=== PATIENT | female | born 1970 | race Caucasian/White ===

== ENCOUNTER 2017-03-28 19:26 | Emergency (ER) | payer MEDICAID, OTHER ==
[~2017-03-28] VITALS: Ht 160 cm; Wt 108.9 kg
[~2017-03-28 19:26] MED LIST: BENADRYL; CARI350T27 PO
[2017-03-28 19:34] VITALS: BP_SYST 163
--- NOTE | 2017-03-28 19:39 | NUR ---
Patient to ER bed 2 to gown for evaluation. Side rails up. Report given to Enrico THEODORE.
--- NOTE | 2017-03-28 19:50 | NUR ---
Patient with c/o upper back pain/spasm x 3 weeks, patient denies any known trauma or injury. Patient reports that she usually gets the spasms every year, but they go away on it's own. Patient able to ambulate to room with slow, steady gait. On the way to bed 2, patient went to the bathroom and provided a urine sample which was obtained and sent to lab. Patient denies any numbness or tingling, or any incontinence. Awaiting evaluation by ER MD-will continue to observe and assess.
--- NOTE | 2017-03-28 20:05 | NUR ---
Dr Melgar at bedside to evaluate patient.
[2017-03-28] MEDS ORDERED: CYCLOBENZAPRINE HCL 10 MG TABLET (FLEXERIL) PO ONE (20:15)
[2017-03-28] MEDS ORDERED: KETOROLAC TROMETHAMINE 30 MG VIAL IM ONE (20:15)
--- NOTE | 2017-03-28 20:30 | NUR ---
Prior to medicating patient-confirmed that patient had a ride home.
[2017-03-28 21:12] VITALS: BP_SYST 142
--- NOTE | 2017-03-28 21:12 | NUR ---
Patient given written and verbal discharge instructions and verbalizes understanding. ER MD Talia Oden discussed with patient the results and treatment provided. Patient in stable condition. ID arm band removed. Rx of flexeril & naproxen given. Patient educated on pain management and to follow up with PMD. Pain Scale 0/10. Opportunity for questions provided and answered.
== END 2017-03-28 21:12 | disposition home or self-care (01) ==
LOC: SED 19:26
DX: M62.830 Muscle spasm of back (principal); Z88.6 Allergy status to analgesic agent; Z91.018 Allergy to other foods; Z90.89 Acquired absence of other organs
CPT/HCPCS: 81025; 96372; 99283; J1885

== ENCOUNTER 2018-03-20 02:11 | Emergency (ER) | payer OTHER ==
[~2018-03-20] VITALS: Ht 160 cm; Wt 97.1 kg
[2018-03-20 02:30] VITALS: BP_SYST 162
[2018-03-20 03:08] LABS: BILIRUBIN,URINE NEGATIVE (NEGATIVE); BLOOD, URINE 3+ (NEGATIVE); CLARITY/URINE SL HAZY (CLEAR); COLOR,URINE YELLOW (YELLOW); GLUCOSE,URINE NEGATIVE (NEGATIVE); KETONES,URINE TRACE (NEGATIVE); LEUKOCYTE ESTERASE ,URINE 2+ (NEGATIVE); NITRITE, URINE POSITIVE (NEGATIVE); PROTEIN URINE 1+ (NEGATIVE); UROBILINOGEN,URINE 0.2 (0.2-1.0)
[2018-03-20 03:28] LABS: BACTERIA,URINE MANY /HPF (None Seen); MUCUS,URINE 1+ /LPF (None Seen); RBC,URINE 20-50 /HPF (0-3); WBC,URINE 20-50 /HPF (0-3)
[2018-03-20] MEDS ORDERED: IBUPROFEN 800 MG TABLET PO ONE (03:45)
[2018-03-20] MEDS ORDERED: cefTRIAXone 1 GM in LIDOCAINE 1%, 20 ML MDV 2.1 ML IM ONE (04:00)
[2018-03-20 04:31] VITALS: BP_SYST 147
== END 2018-03-20 04:31 | disposition home or self-care (01) ==
LOC: SED 02:11
DX: N39.0 Urinary tract infection, site not specified (principal); R10.2 Pelvic and perineal pain; I10 Essential (primary) hypertension; Z90.49 Acquired absence of other specified parts of digestive tract; Z98.890 Other specified postprocedural states; Z88.6 Allergy status to analgesic agent; Z91.018 Allergy to other foods
CPT/HCPCS: 81000; 87086; 87186; 96372; 99284; J0696; J2001

== ENCOUNTER 2019-05-07 04:41 | Emergency (ER) | payer OTHER ==
[~2019-05-07] VITALS: Ht 162.6 cm; Wt 113.4 kg
[2019-05-07 04:55] VITALS: BP_SYST 145
--- NOTE | 2019-05-07 04:55 | NUR ---
Patient to ER bed 8 to gown for evaluation. Side rails up. Report given to VIDA THEODORE(REGISTRY).
--- NOTE | 2019-05-07 05:17 | NUR ---
ER at bedside examining patient.
--- NOTE | 2019-05-07 05:25 | NUR ---
THROAT SWAB DONE AND SENT TO LAB.
--- NOTE | 2019-05-07 06:41 | NUR ---
Patient given written and verbal discharge instructions and verbalizes understanding. ER MD discussed with patient the results and treatment provided. Patient in stable condition. ID arm band removed. Rx of Tylenol w/ codeine given. Patient educated on pain management and to follow up with PMD. Pain Scale 5/10. Opportunity for questions provided and answered. Medication side effect fact sheet provided.
[2019-05-07 06:43] VITALS: BP_SYST 139
== END 2019-05-07 06:41 | disposition home or self-care (01) ==
LOC: SED 04:41
DX: J02.9 Acute pharyngitis, unspecified (principal); R13.10 Dysphagia, unspecified; K13.70 Unspecified lesions of oral mucosa; E03.9 Hypothyroidism, unspecified; Z88.6 Allergy status to analgesic agent; Z90.49 Acquired absence of other specified parts of digestive tract; Z98.890 Other specified postprocedural states
CPT/HCPCS: 36415; 86403; 87081; 99283

== ENCOUNTER 2020-06-16 18:21 | Inpatient (IN) | payer OTHER, SELFPAY ==
[~2020-06-16] VITALS: Ht 162.6 cm; Wt 118.8 kg
[2020-06-16] MEDS: KCL 20 mEq in D5NS 1000 mL 1,000 ML IV SCH (00:17)
[2020-06-16 18:30] VITALS: BP_SYST 184
[2020-06-16 20:08] LABS: BILIRUBIN,URINE NEGATIVE (NEGATIVE); BLOOD, URINE 2+ (NEGATIVE); CLARITY/URINE CLEAR (CLEAR); COLOR,URINE YELLOW (YELLOW); GLUCOSE,URINE NEGATIVE (NEGATIVE); KETONES,URINE 1+ (NEGATIVE); LEUKOCYTE ESTERASE ,URINE NEGATIVE (NEGATIVE); NITRITE, URINE NEGATIVE (NEGATIVE); PH,URINE 5.5 (5.0-8.0); PROTEIN URINE 1+ (NEGATIVE); UROBILINOGEN,URINE 0.2 (0.2-1.0)
[2020-06-16] MEDS ORDERED: NACL 0.9% 1,000 ML IV ONE ×3 (20:15→21:45)
[2020-06-16] MEDS ORDERED: KETOROLAC TROMETHAMINE 30 MG VIAL IVP ONE (20:15)
[2020-06-16] MEDS ORDERED: ONDANSETRON HCL 4 MG/2 ML VIAL IVP ONE (20:15)
[2020-06-16] MEDS ORDERED: MORPHINE 4 MG/ML INJ. SYRINGE IVP ONE (20:15)
[2020-06-16 20:46] LABS: BASOPHILS # (AUTO) 0.1 K/uL (0.0-0.2); BASOPHILS % (AUTO) 0.9 % (0.0-2.0); EOSINOPHILS # (AUTO) 0.1 K/uL (0.0-0.4); EOSINOPHILS % (AUTO) 0.5 % (0.0-4.0); HEMATOCRIT 39.2 % (36-48); HEMOGLOBIN 12.6 g/dL (12.0-16.0); LYMPHOCYTES # (AUTO) 1.8 K/uL (1.0-5.5); LYMPHOCYTES % (AUTO) 14.9 % (20.5-51.5); MEAN CORPUSCULAR HEMOGLOBIN 26 pg (27-31); MEAN CORPUSCULAR HGB CONC 32 % (32-36); MEAN CORPUSCULAR VOLUME 82 fL (79.0-98.0); MONOCYTES # (AUTO) 0.6 K/uL (0.0-1.0); NEUTROPHILS # (AUTO) 9.4 K/uL (1.8-7.7); NEUTROPHILS % (AUTO) 78.7 % (40.0-70.0); PLATELET COUNT (AUTO) 383 K/uL (130-430); RED BLOOD CELL COUNT(AUTO) 4.77 MIL/uL (4.2-6.2); RED CELL DISTRIBUTION WIDTH 17.8 % (9.0-15.0); WHITE BLOOD COUNT (AUTO) 11.9 K/uL (4.8-10.8)
[2020-06-16] MEDS ORDERED: cefTRIAXone 1 GM IVPB PREMIX 50 ML IV ONE (21:30)
[2020-06-16 21:40] LABS: CREATININE 1.23 mg/dL (0.55-1.30); POTASSIUM 4.5 mmol/L (3.5-5.1)
[2020-06-16 21:46] LABS: ALBUMIN 3.6 g/dL (3.4-4.8); TOTAL BILIRUBIN 0.2 mg/dL (0.0-1.0)
[2020-06-16] MEDS ORDERED: KCL 20 mEq in D5/0.45NS 1000mL 1,000 ML IV SCH (22:00)
[2020-06-16 22:08] LABS: BACTERIA,URINE FEW /HPF (None Seen); MUCUS,URINE None Seen /LPF (None Seen); RBC,URINE 0-3 /HPF (0-3); WBC,URINE 0-3 /HPF (0-3)
[2020-06-16] MEDS ORDERED: KCL 20 mEq in D5/0.45NS 1000mL 1,000 ML IV ONE (23:27)
[2020-06-16 23:51] VITALS: BP_SYST 152
[2020-06-17] MEDS ORDERED: NALOXONE HCL 0.4 MG/ML AMP (NARCAN) IVP PRN
[2020-06-17] MEDS ORDERED: ACETAMINOPHEN 325 MG TABLET PO PRN
[2020-06-17] MEDS ORDERED: LEVO125T8 PO (00:08)
[2020-06-17] MEDS ORDERED: HCT25 PO (00:08)
[2020-06-17] MEDS: ONDANSETRON HCL 4 MG/2 ML VIAL IVP PRN ×3 (00:14→22:19)
[2020-06-17] MEDS ORDERED: TAMSULOSIN HCL 0.4 MG CAP ONE (00:38)
[2020-06-17] MEDS ORDERED: amLODIPine BESYLATE 10 MG TABLET ONE (00:38)
[2020-06-17] MEDS: amLODIPine BESYLATE 10 MG TABLET PO SCH ×2 (00:48→08:59)
[2020-06-17] MEDS: TAMSULOSIN HCL 0.4 MG CAP PO SCH ×2 (00:49→08:53)
[2020-06-17] MEDS: HYDROmorphone 1 MG INJ. 1 MG/ML AMPUL IVP PRN ×3 (01:12→14:07)
[2020-06-17] MEDS ORDERED: CEFEPIME 1 GM/VIAL (MAXIPIME) ONE (01:43)
[2020-06-17] MEDS: CEFEPIME 1 GM in D5W 50 ML IV SCH ×3 (02:35→22:06)
[2020-06-17] MEDS: LEVOTHYROXINE SODIUM 0.15 MG TABLET PO SCH (06:45)
[2020-06-17 06:49] LABS: BASOPHILS % (AUTO) 0.4 % (0.0-2.0); EOSINOPHILS % (AUTO) 0.4 % (0.0-4.0); HEMATOCRIT 35.5 % (36-48); HEMOGLOBIN 11.5 g/dL (12.0-16.0); LYMPHOCYTES # (AUTO) 1.4 K/uL (1.0-5.5); LYMPHOCYTES % (AUTO) 12.1 % (20.5-51.5); MEAN CORPUSCULAR HEMOGLOBIN 27 pg (27-31); MEAN CORPUSCULAR HGB CONC 32 % (32-36); MEAN CORPUSCULAR VOLUME 82 fL (79.0-98.0); MONOCYTES # (AUTO) 0.4 K/uL (0.0-1.0); NEUTROPHILS # (AUTO) 9.7 K/uL (1.8-7.7); NEUTROPHILS % (AUTO) 84.1 % (40.0-70.0); PLATELET COUNT (AUTO) 354 K/uL (130-430); RED CELL DISTRIBUTION WIDTH 17.2 % (9.0-15.0); WHITE BLOOD COUNT (AUTO) 11.5 K/uL (4.8-10.8)
[2020-06-17] MEDS: INSULIN REGULAR, HUMAN 100 UNITS/ML, 10 ML VIAL (humuLIN R) SUBCUT PRN ×4 (06:51→22:09)
[2020-06-17 07:45] LABS: CALCIUM 8.2 mg/dL (8.4-11.0); CREATININE 1.16 mg/dL (0.55-1.30); POTASSIUM 4.7 mmol/L (3.5-5.1)
[2020-06-17] MEDS: KCL 20 mEq in D5NS 1000 mL 1,000 ML IV SCH ×2 (09:13→17:46)
[2020-06-17 11:39] VITALS: BP_SYST 96
[2020-06-17 16:16] VITALS: BP_SYST 139
[2020-06-17 20:00] VITALS: BP_SYST 144
[2020-06-17] MEDS: ENOXAPARIN SODIUM 40 MG/0.4 ML SYRINGE SUBCUT SCH (22:07)
[2020-06-18] VITALS: BP_SYST 141
[2020-06-18] MEDS: ONDANSETRON HCL 4 MG/2 ML VIAL IVP PRN ×2 (04:48→12:43)
[2020-06-18] MEDS: KCL 20 mEq in D5NS 1000 mL 1,000 ML IV SCH ×2 (04:48→13:29)
[2020-06-18] MEDS: HYDROmorphone 1 MG INJ. 1 MG/ML AMPUL IVP PRN ×3 (04:52→21:17)
[2020-06-18] MEDS: INSULIN REGULAR, HUMAN 100 UNITS/ML, 10 ML VIAL (humuLIN R) SUBCUT PRN ×4 (06:29→21:43)
[2020-06-18] MEDS: LEVOTHYROXINE SODIUM 0.15 MG TABLET PO SCH ×2 (06:29→09:00)
[2020-06-18 07:09] LABS: BASOPHILS % (AUTO) 0.3 % (0.0-2.0); EOSINOPHILS # (AUTO) 0.2 K/uL (0.0-0.4); EOSINOPHILS % (AUTO) 1.8 % (0.0-4.0); HEMATOCRIT 35.1 % (36-48); HEMOGLOBIN 11.3 g/dL (12.0-16.0); LYMPHOCYTES # (AUTO) 2.4 K/uL (1.0-5.5); LYMPHOCYTES % (AUTO) 21.1 % (20.5-51.5); MEAN CORPUSCULAR HEMOGLOBIN 27 pg (27-31); MEAN CORPUSCULAR HGB CONC 32 % (32-36); MEAN CORPUSCULAR VOLUME 83 fL (79.0-98.0); MONOCYTES # (AUTO) 0.5 K/uL (0.0-1.0); MONOCYTES % (AUTO) 4.3 % (1.7-9.3); NEUTROPHILS # (AUTO) 8.4 K/uL (1.8-7.7); NEUTROPHILS % (AUTO) 72.5 % (40.0-70.0); PLATELET COUNT (AUTO) 380 K/uL (130-430); RED BLOOD CELL COUNT(AUTO) 4.22 MIL/uL (4.2-6.2); RED CELL DISTRIBUTION WIDTH 17.7 % (9.0-15.0); WHITE BLOOD COUNT (AUTO) 11.6 K/uL (4.8-10.8)
[2020-06-18 08:00] LABS: ALBUMIN 3.3 g/dL (3.4-4.8); CALCIUM 7.9 mg/dL (8.4-11.0); CREATININE 1.21 mg/dL (0.55-1.30); POTASSIUM 4.3 mmol/L (3.5-5.1); TOTAL BILIRUBIN 0.3 mg/dL (0.0-1.0)
[2020-06-18 08:13] VITALS: BP_SYST 156
[2020-06-18] MEDS: amLODIPine BESYLATE 10 MG TABLET PO SCH (09:00)
[2020-06-18] MEDS: CEFEPIME 1 GM in D5W 50 ML IV SCH ×2 (09:08→21:15)
[2020-06-18] MEDS: TAMSULOSIN HCL 0.4 MG CAP PO SCH (09:08)
[2020-06-18 12:32] VITALS: BP_SYST 154
[2020-06-18 16:19] VITALS: BP_SYST 131
[2020-06-18 20:00] VITALS: BP_SYST 149
[2020-06-18] MEDS: ENOXAPARIN SODIUM 40 MG/0.4 ML SYRINGE SUBCUT SCH (21:16)
[2020-06-19] VITALS: BP_SYST 162
[2020-06-19] MEDS: KCL 20 mEq in D5NS 1000 mL 1,000 ML IV SCH (00:45)
[2020-06-19 07:32] LABS: BASOPHILS % (AUTO) 0.5 % (0.0-2.0); EOSINOPHILS # (AUTO) 0.2 K/uL (0.0-0.4); EOSINOPHILS % (AUTO) 2.4 % (0.0-4.0); HEMATOCRIT 37.3 % (36-48); HEMOGLOBIN 12.2 g/dL (12.0-16.0); LYMPHOCYTES # (AUTO) 2.1 K/uL (1.0-5.5); LYMPHOCYTES % (AUTO) 23.2 % (20.5-51.5); MEAN CORPUSCULAR HEMOGLOBIN 27 pg (27-31); MEAN CORPUSCULAR HGB CONC 33 % (32-36); MEAN CORPUSCULAR VOLUME 83 fL (79.0-98.0); MONOCYTES # (AUTO) 0.3 K/uL (0.0-1.0); MONOCYTES % (AUTO) 3.6 % (1.7-9.3); NEUTROPHILS # (AUTO) 6.3 K/uL (1.8-7.7); NEUTROPHILS % (AUTO) 70.3 % (40.0-70.0); PLATELET COUNT (AUTO) 379 K/uL (130-430); RED BLOOD CELL COUNT(AUTO) 4.52 MIL/uL (4.2-6.2); RED CELL DISTRIBUTION WIDTH 17.4 % (9.0-15.0); WHITE BLOOD COUNT (AUTO) 8.9 K/uL (4.8-10.8)
[2020-06-19 08:00] VITALS: BP_SYST 156
[2020-06-19 08:27] LABS: ALBUMIN 3.1 g/dL (3.4-4.8); CALCIUM 8.1 mg/dL (8.4-11.0); CREATININE 1.22 mg/dL (0.55-1.30); POTASSIUM 4.4 mmol/L (3.5-5.1); TOTAL BILIRUBIN 0.2 mg/dL (0.0-1.0)
[2020-06-19] MEDS ORDERED: amLODIPine BESYLATE 5 MG TABLET ONE (08:47)
[2020-06-19] MEDS: LEVOTHYROXINE SODIUM 0.15 MG TABLET PO SCH (09:00)
[2020-06-19] MEDS: amLODIPine BESYLATE 10 MG TABLET PO SCH (09:01)
[2020-06-19] MEDS: TAMSULOSIN HCL 0.4 MG CAP PO SCH (09:01)
[2020-06-19] MEDS: CEFEPIME 1 GM in D5W 50 ML IV SCH (09:29)
[2020-06-19 12:00] VITALS: BP_SYST 137
[2020-06-19] MEDS: HYDROmorphone 1 MG INJ. 1 MG/ML AMPUL IVP PRN (12:53)
[2020-06-19 15:17] VITALS: BP_SYST 156
== END 2020-06-19 17:20 | disposition home or self-care (01) | DRG 463 ==
LOC: SED 18:21 → STU 22:00 → SMU 23:13
PROVIDERS: ADMIT Family Medicine; ATTEND Family Medicine
DX: N13.6 Pyonephrosis (principal); E11.8 Type 2 diabetes mellitus with unspecified complications; I10 Essential (primary) hypertension; E66.9 Obesity, unspecified; Z20.822 Contact with and (suspected) exposure to COVID-19; E03.9 Hypothyroidism, unspecified; Z88.6 Allergy status to analgesic agent; Z91.018 Allergy to other foods; Z90.49 Acquired absence of other specified parts of digestive tract; Z79.890 Hormone replacement therapy; Z79.899 Other long term (current) drug therapy; Z68.42 Body mass index [BMI] 45.0-49.9, adult; N20.0 Calculus of kidney
CPT/HCPCS: 36415; 76376; 76770; 80048; 80053; 81000-TC; 82962; 83605; 85025; 87086; 96361; 96374; 96375; J0692; J0696; J1170; J1650; J1815; J1885; J2270; J2405; J7030; J7060

== ENCOUNTER 2021-11-10 17:59 | Inpatient (IN) | payer OTHER ==
[~2021-11-10] VITALS: Ht 165.1 cm; Wt 122.0 kg
[~2021-11-10 17:59] MED LIST changes: -BENADRYL; -CARI350T27 PO; +LEVO125T8 PO
[2021-11-10 18:13] VITALS: BP_SYST 158
--- NOTE | 2021-11-10 18:18 | NUR ---
Pt triaged and placed in waiting room pending bed availability. EKG given to Dr Mark for review immediately after was done.
--- NOTE | 2021-11-10 19:15 | NUR ---
MELANIE HAMILTON AT BEDSIDE.
[2021-11-10 20:09] LABS: BASOPHILS # (AUTO) 0.1 K/uL (0.0-0.2); BASOPHILS % (AUTO) 1.9 % (0.0-2.0); EOSINOPHILS # (AUTO) 0.2 K/uL (0.0-0.4); EOSINOPHILS % (AUTO) 3.2 % (0.0-4.0); HEMATOCRIT 39.6 % (36-48); HEMOGLOBIN 13.2 g/dL (12.0-16.0); LYMPHOCYTES % (AUTO) 12.5 % (20.5-51.5); MEAN CORPUSCULAR HEMOGLOBIN 28 pg (27-31); MEAN CORPUSCULAR HGB CONC 33 % (32-36); MEAN CORPUSCULAR VOLUME 84 fL (79.0-98.0); MONOCYTES # (AUTO) 0.3 K/uL (0.0-1.0); MONOCYTES % (AUTO) 4.3 % (1.7-9.3); NEUTROPHILS % (AUTO) 78.1 % (40.0-70.0); PLATELET COUNT (AUTO) 341 K/uL (130-430); RED BLOOD CELL COUNT(AUTO) 4.69 MIL/uL (4.2-6.2); RED CELL DISTRIBUTION WIDTH 16.7 % (9.0-15.0); WHITE BLOOD COUNT (AUTO) 7.7 K/uL (4.8-10.8)
[2021-11-10 20:17] LABS: ANION GAP 13 (5-15); CALCIUM 8.4 mg/dL (8.4-11.0); CHLORIDE 102 mmol/L (98-107); CREATININE 0.91 mg/dL (0.55-1.30); GLUCOSE 175 mg/dL (70-99); POTASSIUM 4.2 mmol/L (3.5-5.1); SODIUM SERUM 137 mmol/L (136-145); UREA NITROGEN, BLOOD 14 mg/dL (8-21)
[2021-11-10 20:19] LABS: GFR AFRICAN AMERICAN 84 mL/min (>90)
[2021-11-10 20:26] LABS: ALANINE AMINOTRANSFERASE 71 U/L (12-78); ALBUMIN 3.4 g/dL (3.4-4.8); ASPARTATE AMINOTRANSFERASE 116 U/L (10-37); TOTAL BILIRUBIN 0.4 mg/dL (0.0-1.0)
[2021-11-10] MEDS ORDERED: KETOROLAC TROMETHAMINE 15 MG VIAL IVP ONE (20:30)
[2021-11-10] MEDS ORDERED: ONDANSETRON HCL 4 MG/2 ML VIAL IVP ONE (20:45)
[2021-11-10] MEDS ORDERED: NACL 0.9% 1,000 ML IV ONE (21:45)
--- NOTE | 2021-11-10 22:55 | NUR ---
MELANIE RANGEL AT BEDSIDE.
--- NOTE | 2021-11-11 01:12 | NUR ---
CHAPERONED DR. RANGEL FOR RECTAL EXAM.
[2021-11-11] MEDS ORDERED: PIPERACILLIN/TAZO 3.375 GM in NS 50 ML IV ONE (01:30)
[2021-11-11] MEDS ORDERED: metroNIDAZOLE 500 MG TABLET PO ONE (01:30)
[2021-11-11] MEDS ORDERED: NACL 0.9% 700 ML IV ONE (01:30)
[2021-11-11] MEDS ORDERED: PIPERACILLIN/TAZOBACTAM 3.375 GM/VIAL (ZOSYN) IV ONE (01:38)
[2021-11-11 01:59] LABS: BILIRUBIN,URINE NEGATIVE (NEGATIVE); COLOR,URINE YELLOW (YELLOW); GLUCOSE,URINE NEGATIVE (NEGATIVE); KETONES,URINE TRACE (NEGATIVE); LEUKOCYTE ESTERASE ,URINE NEGATIVE (NEGATIVE); NITRITE, URINE NEGATIVE (NEGATIVE); PROTEIN URINE TRACE (NEGATIVE); UROBILINOGEN,URINE 0.2 (0.2-1.0)
[2021-11-11 02:07] LABS: BLOOD, URINE TRACE (NEGATIVE); CLARITY/URINE HAZY (CLEAR)
[2021-11-11 02:21] LABS: BACTERIA,URINE FEW /HPF (None Seen); RBC,URINE 0-3 /HPF (0-3); WBC,URINE 0-3 /HPF (0-3)
--- NOTE | 2021-11-11 04:06 | NUR ---
Brian Ling, pgr [phone] Addendum: 11/11/21 at 0427 by Polly Faith RN second page to Dr. Ling
[2021-11-11 05:16] LABS: CALCIUM 7.4 mg/dL (8.4-11.0); CREATININE 0.94 mg/dL (0.55-1.30); POTASSIUM 4.3 mmol/L (3.5-5.1)
[2021-11-11 05:27] LABS: HEMATOCRIT 36.6 % (36-48); HEMOGLOBIN 12.2 g/dL (12.0-16.0); MEAN CORPUSCULAR HEMOGLOBIN 28 pg (27-31); MEAN CORPUSCULAR HGB CONC 33 % (32-36); MEAN CORPUSCULAR VOLUME 84 fL (79.0-98.0); RED BLOOD CELL COUNT(AUTO) 4.34 MIL/uL (4.2-6.2); WHITE BLOOD COUNT (AUTO) 6.6 K/uL (4.8-10.8)
[2021-11-11 05:28] LABS: BASOPHILS % (AUTO) 0.6 % (0.0-2.0); EOSINOPHILS # (AUTO) 0.1 K/uL (0.0-0.4); LYMPHOCYTES # (AUTO) 0.9 K/uL (1.0-5.5); LYMPHOCYTES % (AUTO) 13.3 % (20.5-51.5); MONOCYTES # (AUTO) 0.3 K/uL (0.0-1.0); MONOCYTES % (AUTO) 4.7 % (1.7-9.3); NEUTROPHILS # (AUTO) 5.2 K/uL (1.8-7.7); NEUTROPHILS % (AUTO) 79.4 % (40.0-70.0); PLATELET COUNT (AUTO) 331 K/uL (130-430); RED CELL DISTRIBUTION WIDTH 16.5 % (9.0-15.0)
--- NOTE | 2021-11-11 06:00 | NUR ---
Admit bed requested Patient will be admitted to care of . Admitted to TELE unit. Diagnosis PERIRECTAL ABSCESS AND CHEST PAIN Inpatient (Yes or No) YES Observation (Yes or No) NO Orientation concerns or request close to nursing station (Yes or No) NO Covid Status NEG On vent or bipap NA Isolation requirements NA Needs a sitter NA From Home (Yes or if No enter name of facility) HOME Requires Dialysis (Yes or No) NO Med Rec Completed (Yes of No) YES
--- NOTE | 2021-11-11 10:35 | NUR ---
PT STATUS CHANGE TO MED/SURG.
[2021-11-11] MEDS: NACL 0.9% 1,000 ML IV SCH ×2 (11:24→21:07)
--- NOTE | 2021-11-11 11:44 | NUR ---
CONSULTATION PAGED REASON FOR CONSULTATION:ABSCESS WAS CONSULT CALED?Y PERSON WHO WAS NOTIFIED:NANDA CONSULTING PHYSICIAN:JENAE COVARRUBIAS CHECK CASHIER SPECIALTY:SURGEON CHECK CASHIER PHONE NUMBER:[phone] REQUESTING PHYSICIAN:MIRNA CURRIE
--- NOTE | 2021-11-11 11:45 | NUR ---
CARE ENDORSED TO [facility] [address]. [address]. SBAR PROVIDED. PACKET ALSO. VSS. NAD NOTED. END OF CARE.
--- NOTE | 2021-11-11 11:45 | NUR ---
Initial Note Patient came to the unit via wheelchair. AOX4. Patient has been oriented to room and call light use. Vital signs obtained, as documented. Patient has chest pain, especially when coughing. States has some SOB when moving, SPo2 at 97% on room air. Patient has been oriented to room and use of call light. Patient aware to call for assistance when needed. Safety precautions in place and call light within reach.
--- NOTE | 2021-11-11 11:47 | NUR ---
CONSULTATION PAGED REASON FOR CONSULTATION:COVID WAS CONSULT CALED?Y PERSON WHO WAS NOTIFIED:NANDA CONSULTING PHYSICIAN:TOR JAMISON COMMISSARY WORKER SPECIALTY:INFECTIOUS DISEASE COMMISSARY WORKER PHONE NUMBER:[phone] REQUESTING PHYSICIAN:MIRNA CURRIE
[2021-11-11 12:00] VITALS: BP_SYST 143
[2021-11-11] MEDS ORDERED: PIPERACILLIN/TAZO 3.375 GM in NS 50 ML IV SCH (12:00)
[2021-11-11 12:11] LABS: C-REACTIVE PROTEIN QUANT 3.2 mg/dL (0-0.5)
[2021-11-11] MEDS ORDERED: ACETAMINOPHEN 325 MG TABLET PO PRN (12:15)
[2021-11-11] MEDS ORDERED: CHOLECALCIFEROL (VITAMIN D3) 5,000 UNIT TABLET PO ONE (12:30)
[2021-11-11] MEDS ORDERED: traZODone HCL 50 MG TABLET (DESYREL) PO PRN (12:45)
[2021-11-11] MEDS: metroNIDAZOLE 500 mg/NS 100 ML IV SCH ×2 (14:40→21:06)
--- NOTE | 2021-11-11 15:30 | NUR ---
Notes Dr. Dobson came to see patient. Orders received.
[2021-11-11 16:00] VITALS: BP_SYST 157
--- NOTE | 2021-11-11 16:00 | NUR ---
Notes Patient is resting eyes closed. Does not complain of pain at this time. No s/s of respiratory distress noted. Patient denies SOB at this time. Call light within reach and safety precautions in place.
--- NOTE | 2021-11-11 19:15 | NUR ---
Closing Note Patient is eating dinner. No s/s of distress. No complaints of pain. Patient in stable condition. Patient wants to have diet advanced. Paged and spoke to Dr. Ling. New orders received. Will endorse continuing of care to incoming nurse.
[2021-11-11] MEDS: ASCORBIC ACID 500 MG TABLET PO SCH (21:06)
[2021-11-11] MEDS: DOXYCYCLINE HYCLATE 100 MG CAPSULE PO SCH (21:06)
[2021-11-11] MEDS: ENOXAPARIN SODIUM 40 MG/0.4 ML SYRINGE SUBCUT SCH (21:07)
[2021-11-11] MEDS: guaiFENesin/DEXTROMETHORPHAN 10 ML UDC PO PRN (21:23)
[2021-11-11 21:32] VITALS: BP_SYST 188
[2021-11-11] MEDS: amLODIPine BESYLATE 10 MG TABLET PO SCH (23:05)
[2021-11-11] MEDS: LOSARTAN POTASSIUM 50 MG TABLET (COZAAR) PO SCH (23:06)
[2021-11-12 01:12] VITALS: BP_SYST 125
[2021-11-12 03:34] LABS: CALCIUM 7.4 mg/dL (8.4-11.0); CREATININE 0.76 mg/dL (0.55-1.30); POTASSIUM 3.5 mmol/L (3.5-5.1)
[2021-11-12 03:48] LABS: ALBUMIN 2.8 g/dL (3.4-4.8); THYROID STIMULATING HORMONE 7.66 uIu/mL (0.36-3.74); TOTAL BILIRUBIN 0.3 mg/dL (0.0-1.0)
[2021-11-12] MEDS: NACL 0.9% 1,000 ML IV SCH ×2 (06:35→12:08)
[2021-11-12] MEDS: metroNIDAZOLE 500 mg/NS 100 ML IV SCH ×3 (06:35→22:22)
[2021-11-12] MEDS ORDERED: LEVOTHYROXINE SODIUM 0.15 MG TABLET PO SCH ×2 (07:00)
[2021-11-12 07:27] LABS: BASOPHILS # (AUTO) 0.1 K/uL (0.0-0.2); BASOPHILS % (AUTO) 1.1 % (0.0-2.0); EOSINOPHILS # (AUTO) 0.2 K/uL (0.0-0.4); EOSINOPHILS % (AUTO) 3.4 % (0.0-4.0); HEMATOCRIT 36.8 % (36-48); HEMOGLOBIN 12.4 g/dL (12.0-16.0); LYMPHOCYTES # (AUTO) 1.4 K/uL (1.0-5.5); LYMPHOCYTES % (AUTO) 23.2 % (20.5-51.5); MEAN CORPUSCULAR HEMOGLOBIN 29 pg (27-31); MEAN CORPUSCULAR HGB CONC 34 % (32-36); MEAN CORPUSCULAR VOLUME 84 fL (79.0-98.0); MONOCYTES # (AUTO) 0.3 K/uL (0.0-1.0); MONOCYTES % (AUTO) 5.1 % (1.7-9.3); NEUTROPHILS # (AUTO) 3.9 K/uL (1.8-7.7); NEUTROPHILS % (AUTO) 67.2 % (40.0-70.0); PLATELET COUNT (AUTO) 316 K/uL (130-430); RED BLOOD CELL COUNT(AUTO) 4.36 MIL/uL (4.2-6.2); RED CELL DISTRIBUTION WIDTH 16.6 % (9.0-15.0); WHITE BLOOD COUNT (AUTO) 5.9 K/uL (4.8-10.8)
[2021-11-12 08:00] VITALS: BP_SYST 147
--- NOTE | 2021-11-12 08:00 | NUR ---
Opening Notes Patient is awake, alert and oriented x4. No resp distress noted. Breathing is even and unlabored. Pt reports intermittent LIU while walking. Pt denies any gen pain/chest pain at this time. IV site on right FA 22 gauge intact, NS @ 100 ml/hr, infusing well. Pt reports dry cough, hot flashes, loss of taste/smell. Droplet precautions. All needs met at this time. Safety and fall precautions in place. Bed in lowest position, locked. Will continue to monitor.
[2021-11-12] MEDS: ASCORBIC ACID 500 MG TABLET PO SCH ×2 (08:07→20:48)
[2021-11-12] MEDS: DOXYCYCLINE HYCLATE 100 MG CAPSULE PO SCH ×2 (08:07→20:48)
[2021-11-12] MEDS: ATORVASTATIN 10 MG TABLET PO SCH (08:07)
[2021-11-12] MEDS: CHOLECALCIFEROL (VITAMIN D3) 5,000 UNIT TABLET PO SCH (08:08)
[2021-11-12] MEDS: amLODIPine BESYLATE 10 MG TABLET PO SCH (08:08)
[2021-11-12] MEDS: ENOXAPARIN SODIUM 40 MG/0.4 ML SYRINGE SUBCUT SCH ×2 (08:11→21:37)
[2021-11-12] MEDS: LOSARTAN POTASSIUM 50 MG TABLET (COZAAR) PO SCH ×2 (08:15→20:48)
[2021-11-12] MEDS ORDERED: LOSARTAN POTASSIUM 50 MG TABLET (COZAAR) PO SCH (09:00)
[2021-11-12] MEDS: PHENYLEPH/MINERAL OIL/PETROLAT 57 GM OINT.APPL TP SCH (09:58)
[2021-11-12] MEDS: PROMETHAZINE-DM 6.25 MG-15 MG/5 ML UDC PO PRN ×2 (09:58→17:26)
[2021-11-12 12:00] VITALS: BP_SYST 149
--- NOTE | 2021-11-12 12:00 | NUR ---
Notes/Suppository Patient is awake, alert and oriented x4. Pt noted with dry hacking cough. Mild SOB during coughing episodes. Pt remains on RA at this time. Denies any pain. Will continue to monitor.
[2021-11-12] MEDS ORDERED: BISACODYL 10 MG/SUPPOSITORY RC ONE (13:15)
[2021-11-12 16:00] VITALS: BP_SYST 142
--- NOTE | 2021-11-12 16:00 | NUR ---
Notes Patient is sleeping at this time. No resp distress at this time. NO signs of pain. Will continue to monitor.
--- NOTE | 2021-11-12 18:55 | NUR ---
Closing Notes Patient is awake, alert and oriented x4. Mild SOB during coughing episodes. Pt is noted with a dry, hacking cough. Pt is tolerating Promethazine medication well. Pt remains on RA at this time. Pt denies any pain at this time. IV site on right FA 22 gauge intact, NS 2 100 ml/hr infusing well. Pt is ambulatory, steady gait. S/p Dulcolax suppository, no reported BM yet. Will endorse. Hemmhorid cream by bedside. Droplet precautions in place. All needs met at this time. Safety and fall precautions in place. Bed in lowest position, locked. Will continue to monitor.
[2021-11-12 20:02] VITALS: BP_SYST 127
[2021-11-13] MEDS: NACL 0.9% 1,000 ML IV SCH ×3 (03:00→23:00)
[2021-11-13 04:46] VITALS: BP_SYST 134
[2021-11-13] MEDS ORDERED: LEVOTHYROXINE SODIUM 0.15 MG TABLET PO SCH (07:00)
[2021-11-13 08:05] VITALS: BP_SYST 191
--- NOTE | 2021-11-13 08:10 | NUR ---
INITIAL ROUNDS Received pt AAOx4, no s/s resp distress, noted pt coughing-will check on cough syrup per request. No c/o pain or discomfort. No IV access-Charge here in room to attempt IV insertion. Pt on airborne and droplet isolation precautions for Covid 19+. Plan of care for the day reviewed with pt-pt verbalized her understanding. Call light within reach.
[2021-11-13] MEDS: DOXYCYCLINE HYCLATE 100 MG CAPSULE PO SCH ×2 (09:44→21:39)
[2021-11-13] MEDS: ASCORBIC ACID 500 MG TABLET PO SCH ×2 (09:44→21:39)
[2021-11-13] MEDS: amLODIPine BESYLATE 10 MG TABLET PO SCH (09:44)
[2021-11-13] MEDS: LOSARTAN POTASSIUM 50 MG TABLET (COZAAR) PO SCH ×2 (09:44→21:53)
[2021-11-13] MEDS: CHOLECALCIFEROL (VITAMIN D3) 5,000 UNIT TABLET PO SCH (09:45)
[2021-11-13] MEDS: PROMETHAZINE-DM 6.25 MG-15 MG/5 ML UDC PO PRN ×2 (09:47→21:56)
[2021-11-13] MEDS: ENOXAPARIN SODIUM 40 MG/0.4 ML SYRINGE SUBCUT SCH ×2 (09:50→21:41)
[2021-11-13] MEDS: LEVOTHYROXINE SODIUM 0.075 MG TABLET PO SCH (09:53)
[2021-11-13] MEDS: LEVOTHYROXINE SODIUM 0.1 MG TABLET PO SCH (09:53)
[2021-11-13] MEDS: ATORVASTATIN 10 MG TABLET PO SCH (10:02)
--- NOTE | 2021-11-13 10:30 | NUR ---
NO IV ACCESS/MD Unable to obtain IV access on patient, called MD to get a PICC line order-Dr. Katz stated no need for PICC line due to pt going home later day when he sees the pt. Dr. katz requested that Dr. Robles for infection Disease change antibiotics to p.o.-MD paged, awaiting call back.
--- NOTE | 2021-11-13 15:34 | NUR ---
Dietitian Recommendations * Change diet to [facility] Please refer to Nutrition Assessment for details. Addendum: 11/13/21 at [address] Amended: Links added.
[2021-11-13 17:05] VITALS: BP_SYST 142
[2021-11-13] MEDS: metroNIDAZOLE 500 mg/NS 100 ML IV SCH ×2 (18:15→21:42)
[2021-11-13] MEDS: PHENYLEPH/MINERAL OIL/PETROLAT 57 GM OINT.APPL TP SCH (18:16)
--- NOTE | 2021-11-13 19:20 | NUR ---
CLOSING NOTE Pt resting quietly in bed with no s/s resp distress, no c/o pain or discomfort. Pt seen by Dr. Ling who may be discharged home in the morning. Pt given fresh ice water per request. Droplet isolation precautions remain in place. Needs met, call light within reach.
--- NOTE | 2021-11-13 20:40 | NUR ---
Opening notes Pt AAOx4, no s/s distress noted, BP 191/100, per pt that is her baseline. Pt denies any pain. O2 sat 99% on room air. Call light within reach. Bed low, locked, siderails up x2. To monitor.
[2021-11-13 21:05] VITALS: BP_SYST 191
[2021-11-14 00:25] VITALS: BP_SYST 118
--- NOTE | 2021-11-14 00:25 | NUR ---
Rounds Pt asleep, easily awakens, no s/s distress noted. VSS BP 118/67 HR 101. Call light within reach. Bed low, locked, siderails up x2. To monitor.
[2021-11-14] MEDS: PROMETHAZINE-DM 6.25 MG-15 MG/5 ML UDC PO PRN ×3 (04:55→22:16)
[2021-11-14] MEDS: metroNIDAZOLE 500 mg/NS 100 ML IV SCH ×3 (05:46→22:00)
[2021-11-14] MEDS: LEVOTHYROXINE SODIUM 0.1 MG TABLET PO SCH (06:30)
[2021-11-14] MEDS: LEVOTHYROXINE SODIUM 0.075 MG TABLET PO SCH (06:35)
[2021-11-14 08:10] VITALS: BP_SYST 150
--- NOTE | 2021-11-14 08:10 | NUR ---
Opening Note Patient is sitting up in bed awake. A/O x4. Vitals as charted. No apparent distress noted. Call light within reach. Safety and fall precautions in place. Provided patient with hygiene essentials for oral care in addition to soap, lotion and deodorant. All needs met.
[2021-11-14] MEDS: NACL 0.9% 1,000 ML IV SCH ×3 (09:00→19:00)
--- NOTE | 2021-11-14 10:40 | NUR ---
Note Patient does not have IV access. Asked patient for consent to insert an IV, patient declined. Patient states she has been "poked" 27 times since she has been admitted, states her veins are difficult to find and she does not want to be "poked" anymore. Patient does not have IV access.
[2021-11-14] MEDS: ATORVASTATIN 10 MG TABLET PO SCH (10:43)
[2021-11-14] MEDS: DOXYCYCLINE HYCLATE 100 MG CAPSULE PO SCH ×2 (10:43→21:11)
[2021-11-14] MEDS: ASCORBIC ACID 500 MG TABLET PO SCH ×2 (10:43→21:39)
[2021-11-14] MEDS: LOSARTAN POTASSIUM 50 MG TABLET (COZAAR) PO SCH ×2 (10:44→21:46)
[2021-11-14] MEDS: amLODIPine BESYLATE 10 MG TABLET PO SCH (10:45)
[2021-11-14] MEDS: CHOLECALCIFEROL (VITAMIN D3) 5,000 UNIT TABLET PO SCH (10:45)
[2021-11-14] MEDS: ENOXAPARIN SODIUM 40 MG/0.4 ML SYRINGE SUBCUT SCH ×2 (10:50→21:11)
[2021-11-14] MEDS: PHENYLEPH/MINERAL OIL/PETROLAT 57 GM OINT.APPL TP SCH (10:50)
[2021-11-14 12:05] VITALS: BP_SYST 127
--- NOTE | 2021-11-14 12:30 | NUR ---
Lunch Family member dropped off lunch for patient. Lunch delivered to patient. Call light within reach. Safety and fall precautions in place. All needs met.
[2021-11-14 15:52] VITALS: BP_SYST 160
--- NOTE | 2021-11-14 19:55 | NUR ---
Closing Note Patient is sitting up in bed awake. No apparent distress noted. Call light within reach. Safety and fall precautions in place. All needs met. Endorsed care to traveling crane operator RN Uri.
[2021-11-14] MEDS ORDERED: ANUSOL 1 EA SUPP.RECT (PREPARATION H) RC ONE (21:15)
--- NOTE | 2021-11-14 21:30 | NUR ---
P0T IS COVID POSITIVE. PT CURRENTLY ON ISOLATION. DR BLISS AT BEDSIDE. PT REQUESTING [facility]. WILL MEDICATE PER EMAR
[2021-11-14 22:00] VITALS: BP_SYST 160
--- NOTE | 2021-11-14 22:00 | NUR ---
PT GIVEN SUPPOSITORY PER ORDERS. PT DOES NOT HAVE IV ACCESS AND PT REFUSES IV ACCESS DUE TO NURSES BEING UNABLE TO FIND A GOOD VEIN.
[2021-11-14] MEDS: guaiFENesin/DEXTROMETHORPHAN 10 ML UDC PO PRN (22:01)
[2021-11-15 00:39] VITALS: BP_SYST 158
[2021-11-15] MEDS: NACL 0.9% 1,000 ML IV SCH (04:09)
[2021-11-15] MEDS: metroNIDAZOLE 500 mg/NS 100 ML IV SCH (06:00)
[2021-11-15] MEDS: LEVOTHYROXINE SODIUM 0.1 MG TABLET PO SCH (06:28)
[2021-11-15] MEDS: LEVOTHYROXINE SODIUM 0.075 MG TABLET PO SCH (06:28)
[2021-11-15 07:29] LABS: BASOPHILS # (AUTO) 0.1 K/uL (0.0-0.2); BASOPHILS % (AUTO) 0.7 % (0.0-2.0); EOSINOPHILS # (AUTO) 0.4 K/uL (0.0-0.4); EOSINOPHILS % (AUTO) 4.5 % (0.0-4.0); HEMATOCRIT 38.1 % (36-48); HEMOGLOBIN 12.9 g/dL (12.0-16.0); LYMPHOCYTES # (AUTO) 3.2 K/uL (1.0-5.5); LYMPHOCYTES % (AUTO) 39.2 % (20.5-51.5); MEAN CORPUSCULAR HEMOGLOBIN 28 pg (27-31); MEAN CORPUSCULAR HGB CONC 34 % (32-36); MEAN CORPUSCULAR VOLUME 83 fL (79.0-98.0); MONOCYTES # (AUTO) 0.4 K/uL (0.0-1.0); MONOCYTES % (AUTO) 5.6 % (1.7-9.3); PLATELET COUNT (AUTO) 370 K/uL (130-430); RED BLOOD CELL COUNT(AUTO) 4.58 MIL/uL (4.2-6.2); RED CELL DISTRIBUTION WIDTH 15.9 % (9.0-15.0); WHITE BLOOD COUNT (AUTO) 8.1 K/uL (4.8-10.8)
[2021-11-15 07:43] LABS: ALBUMIN 2.9 g/dL (3.4-4.8); CALCIUM 8.4 mg/dL (8.4-11.0); CREATININE 0.87 mg/dL (0.55-1.30); POTASSIUM 4.2 mmol/L (3.5-5.1); TOTAL BILIRUBIN 0.3 mg/dL (0.0-1.0)
[2021-11-15 08:00] VITALS: BP_SYST 154
--- NOTE | 2021-11-15 08:00 | NUR ---
Opening Note Patient is laying in bed awake. No apparent distress noted. Vitals as charted. Call light within reach. Safety and fall precautions in place. All needs met. Provided patient with ice chips and water.
[2021-11-15] MEDS: ENOXAPARIN SODIUM 40 MG/0.4 ML SYRINGE SUBCUT SCH (09:24)
[2021-11-15] MEDS: DOXYCYCLINE HYCLATE 100 MG CAPSULE PO SCH (09:25)
[2021-11-15] MEDS: ASCORBIC ACID 500 MG TABLET PO SCH (09:25)
[2021-11-15] MEDS: amLODIPine BESYLATE 10 MG TABLET PO SCH (09:26)
[2021-11-15] MEDS: ATORVASTATIN 10 MG TABLET PO SCH (09:26)
[2021-11-15] MEDS: LOSARTAN POTASSIUM 50 MG TABLET (COZAAR) PO SCH (09:26)
[2021-11-15] MEDS: PHENYLEPH/MINERAL OIL/PETROLAT 57 GM OINT.APPL TP SCH (09:27)
[2021-11-15] MEDS: CHOLECALCIFEROL (VITAMIN D3) 5,000 UNIT TABLET PO SCH (09:27)
[2021-11-15 12:10] VITALS: BP_SYST 155
--- NOTE | 2021-11-15 13:31 | NUR ---
Note Patient is sitting up in bed. No apparent distress noted. Provided patient with a clean gown and face towels. Call light within reach. Safety and fall precautions in place. All needs met.
--- NOTE | 2021-11-15 14:13 | NUR ---
Dispo code 01. to home f/u with PCP
[2021-11-15 14:25] VITALS: BP_SYST 155
[2021-11-15] MEDS ORDERED: LOSA50TA3 PO (14:48)
[2021-11-15] MEDS ORDERED: DOXY-244 PO (14:49)
[2021-11-15] MEDS ORDERED: VITD400 PO (14:50)
[2021-11-15] MEDS ORDERED: APIX2.5T PO (14:53)
[2021-11-15 15:45] VITALS: BP_SYST 135
--- NOTE | 2021-11-15 15:50 | NUR ---
D/C Patient Patient given medication reconciliation form and D/C instructions. Exit Care provided. Patient verbalized understanding. MD discussed with patient the results and treatment provided. Ambulatory with steady gait for discharge to home. Patient in stable condition, ID band removed. No IV catheter to remove, patient did not have access. Patient educated on pain management. All belongings sent with patient.
== END 2021-11-15 17:29 | disposition home or self-care (01) | DRG 137 ==
LOC: SED 17:59 → STU 11-11 05:20 → SMU 11-11 11:20
PROVIDERS: ADMIT Family Medicine; ATTEND Family Medicine
DX: U07.1 COVID-19 (principal); J12.82 Pneumonia due to coronavirus disease 2019; E44.0 Moderate protein-calorie malnutrition; K61.1 Rectal abscess; K61.0 Anal abscess; E83.51 Hypocalcemia; I10 Essential (primary) hypertension; K64.8 Other hemorrhoids; E78.5 Hyperlipidemia, unspecified; E66.01 Morbid (severe) obesity due to excess calories; E89.0 Postprocedural hypothyroidism; I45.9 Conduction disorder, unspecified; K42.9 Umbilical hernia without obstruction or gangrene; N28.1 Cyst of kidney, acquired; R73.03 Prediabetes; Z88.6 Allergy status to analgesic agent; Z91.018 Allergy to other foods; Z79.899 Other long term (current) drug therapy; Z83.3 Family history of diabetes mellitus; Z28.310 Unvaccinated for COVID-19; Z68.41 Body mass index [BMI] 40.0-44.9, adult
CPT/HCPCS: 36415; 71045; 76376; 80048; 80053; 81000; 82550; 83605; 83880; 84443; 84484; 85025; 85379; 85651-TC; 86140; 87040; 87081; 93005; 93306; 96365; 96375; 99291; J0696; J1650; J1885; J2405; J2543; J3490; J7060

== ENCOUNTER 2022-06-01 01:29 | Inpatient (IN) | payer OTHER ==
[~2022-06-01] VITALS: Ht 165.1 cm; Wt 135.6 kg
[~2022-06-01 01:29] MED LIST changes: +APIX2.5T PO; +DOXY-244 PO; +LOSA50TA3 PO; +VITD400 PO
[2022-06-01 01:43] VITALS: BP_SYST 150
[2022-06-01] MEDS ORDERED: MORPHINE 4 MG INJ. 4 MG/ML VIAL IM ONE (02:15)
[2022-06-01 02:43] LABS: BASOPHILS # (AUTO) 0.1 K/uL (0.0-0.2); BASOPHILS % (AUTO) 0.8 % (0.0-2.0); EOSINOPHILS # (AUTO) 0.4 K/uL (0.0-0.4); EOSINOPHILS % (AUTO) 3.1 % (0.0-4.0); HEMATOCRIT 38.4 % (36-48); HEMOGLOBIN 12.6 g/dL (12.0-16.0); LYMPHOCYTES # (AUTO) 3.8 K/uL (1.0-5.5); LYMPHOCYTES % (AUTO) 29.9 % (20.5-51.5); MEAN CORPUSCULAR HEMOGLOBIN 29 pg (27-31); MEAN CORPUSCULAR HGB CONC 33 % (32-36); MEAN CORPUSCULAR VOLUME 87 fL (79.0-98.0); MONOCYTES # (AUTO) 0.7 K/uL (0.0-1.0); MONOCYTES % (AUTO) 5.3 % (1.7-9.3); NEUTROPHILS # (AUTO) 7.7 K/uL (1.8-7.7); NEUTROPHILS % (AUTO) 60.9 % (40.0-70.0); PLATELET COUNT (AUTO) 452 K/uL (130-430); RED BLOOD CELL COUNT(AUTO) 4.42 MIL/uL (4.2-6.2); RED CELL DISTRIBUTION WIDTH 14.9 % (9.0-15.0); WHITE BLOOD COUNT (AUTO) 12.6 K/uL (4.8-10.8)
[2022-06-01 02:51] LABS: CALCIUM 10.3 mg/dL (8.4-11.0); CREATININE 0.84 mg/dL (0.55-1.30)
[2022-06-01 02:56] LABS: ALBUMIN 3.5 g/dL (3.4-4.8); TOTAL BILIRUBIN 0.2 mg/dL (0.0-1.0)
[2022-06-01] MEDS ORDERED: MORPHINE 4 MG INJ. 4 MG/ML VIAL IVP ONE ×2 (03:00→03:45)
[2022-06-01 04:08] LABS: BILIRUBIN,URINE NEGATIVE (NEGATIVE); BLOOD, URINE 3+ (NEGATIVE); CLARITY/URINE CLEAR (CLEAR); COLOR,URINE YELLOW (YELLOW); GLUCOSE,URINE NEGATIVE (NEGATIVE); KETONES,URINE NEGATIVE (NEGATIVE); LEUKOCYTE ESTERASE ,URINE 1+ (NEGATIVE); NITRITE, URINE POSITIVE (NEGATIVE); PH,URINE 5.5 (5.0-8.0); PROTEIN URINE TRACE (NEGATIVE); UROBILINOGEN,URINE 0.2 (0.2-1.0)
[2022-06-01] MEDS ORDERED: cefTRIAXone 1 GM VIAL ONE (04:40)
[2022-06-01] MEDS ORDERED: NACL 0.9% 1,000 ML IV ONE (04:45)
[2022-06-01] MEDS ORDERED: cefTRIAXone 1 GM in D5W 50 ML IV ONE (04:45)
[2022-06-01 05:16] LABS: BACTERIA,URINE MODERATE /HPF (None Seen); RBC,URINE 50-80 /HPF (0-3); WBC,URINE 50-80 /HPF (0-3)
[2022-06-01 05:17] LABS: MUCUS,URINE 1+ /LPF (None Seen)
[2022-06-01] MEDS ORDERED: HYDR25TA4 PO (10:06)
[2022-06-01] MEDS ORDERED: LOSA100T3 PO (10:06)
[2022-06-01] MEDS ORDERED: SITA100T11 PO (10:06)
[2022-06-01] MEDS ORDERED: METF-379 PO (10:06)
[2022-06-01] MEDS ORDERED: DEXTROSE 50% JECT 50 ML DISP.SYRIN IVP PRN (10:15)
[2022-06-01] MEDS ORDERED: ONDANSETRON HCL 4 MG/2 ML VIAL IVP PRN (10:15)
[2022-06-01] MEDS: NACL 0.9% 1,000 ML IV SCH ×3 (10:22→22:37)
[2022-06-01] MEDS: MORPHINE 2 MG/ML INJ. SYRINGE IVP PRN ×3 (10:24→22:38)
[2022-06-01] MEDS: INSULIN REGULAR, HUMAN 100 UNITS/ML, 3 ML VIAL (humuLIN R) SUBCUT PRN ×2 (12:09→17:31)
[2022-06-01] MEDS ORDERED: INSULIN REGULAR, HUMAN 10 UNITS/0.1 ML, 3 ML VIAL ONE (12:10)
[2022-06-01] MEDS: LACTOBACILLUS RHAMNOSUS GG 1 CAP CAPSULE PO SCH (21:51)
[2022-06-01 22:15] VITALS: BP_SYST 135
[2022-06-02] MEDS: MORPHINE 2 MG/ML INJ. SYRINGE IVP PRN ×4 (04:54→21:59)
[2022-06-02] MEDS: LEVOTHYROXINE SODIUM 0.15 MG TABLET PO SCH (06:15)
[2022-06-02 07:04] LABS: BASOPHILS # (AUTO) 0.1 K/uL (0.0-0.2); BASOPHILS % (AUTO) 0.5 % (0.0-2.0); EOSINOPHILS # (AUTO) 0.5 K/uL (0.0-0.4); EOSINOPHILS % (AUTO) 4.4 % (0.0-4.0); HEMATOCRIT 35.2 % (36-48); HEMOGLOBIN 11.7 g/dL (12.0-16.0); LYMPHOCYTES # (AUTO) 3.4 K/uL (1.0-5.5); LYMPHOCYTES % (AUTO) 32.7 % (20.5-51.5); MEAN CORPUSCULAR HEMOGLOBIN 29 pg (27-31); MEAN CORPUSCULAR HGB CONC 33 % (32-36); MEAN CORPUSCULAR VOLUME 87 fL (79.0-98.0); MONOCYTES # (AUTO) 0.4 K/uL (0.0-1.0); MONOCYTES % (AUTO) 4.2 % (1.7-9.3); NEUTROPHILS # (AUTO) 6.1 K/uL (1.8-7.7); NEUTROPHILS % (AUTO) 58.2 % (40.0-70.0); PLATELET COUNT (AUTO) 391 K/uL (130-430); RED BLOOD CELL COUNT(AUTO) 4.03 MIL/uL (4.2-6.2); RED CELL DISTRIBUTION WIDTH 14.6 % (9.0-15.0); WHITE BLOOD COUNT (AUTO) 10.4 K/uL (4.8-10.8)
[2022-06-02 07:29] LABS: CALCIUM 8.8 mg/dL (8.4-11.0); CREATININE 0.96 mg/dL (0.55-1.30); TOTAL BILIRUBIN 0.3 mg/dL (0.0-1.0)
[2022-06-02 08:00] VITALS: BP_SYST 126
[2022-06-02] MEDS: LACTOBACILLUS RHAMNOSUS GG 1 CAP CAPSULE PO SCH ×2 (08:49→21:13)
[2022-06-02] MEDS: LOSARTAN POTASSIUM 50 MG TABLET (COZAAR) PO SCH (08:49)
[2022-06-02] MEDS ORDERED: CHOLECALCIFEROL (VITAMIN D-3) 400 UNIT TABLET PO SCH (09:00)
[2022-06-02] MEDS: cefTRIAXone 1 GM in D5W 50 ML IV SCH (10:00)
[2022-06-02 12:00] VITALS: BP_SYST 12
[2022-06-02] MEDS: metFORMIN HCL 500 MG TABLET PO SCH (12:00)
[2022-06-02] MEDS: INSULIN REGULAR, HUMAN 100 UNITS/ML, 3 ML VIAL (humuLIN R) SUBCUT PRN ×2 (12:16→17:41)
[2022-06-02] MEDS: NACL 0.9% 1,000 ML IV SCH ×2 (16:15→21:13)
[2022-06-02 16:51] VITALS: BP_SYST 132
[2022-06-02 20:05] VITALS: BP_SYST 132
[2022-06-03] MEDS: MORPHINE 2 MG/ML INJ. SYRINGE IVP PRN ×4 (04:26→21:38)
[2022-06-03] MEDS: LEVOTHYROXINE SODIUM 0.15 MG TABLET PO SCH (06:43)
[2022-06-03] MEDS: INSULIN REGULAR, HUMAN 100 UNITS/ML, 3 ML VIAL (humuLIN R) SUBCUT PRN ×2 (06:54→21:43)
[2022-06-03 08:00] VITALS: BP_SYST 123
[2022-06-03] MEDS: LACTOBACILLUS RHAMNOSUS GG 1 CAP CAPSULE PO SCH ×2 (09:07→21:39)
[2022-06-03] MEDS: LOSARTAN POTASSIUM 50 MG TABLET (COZAAR) PO SCH (09:07)
[2022-06-03] MEDS: CHOLECALCIFEROL (VITAMIN D3) 5,000 UNIT TABLET PO SCH (09:08)
[2022-06-03] MEDS: cefTRIAXone 1 GM in D5W 50 ML IV SCH (10:29)
[2022-06-03] MEDS: metFORMIN HCL 500 MG TABLET PO SCH (12:23)
[2022-06-03] MEDS: NACL 0.9% 1,000 ML IV SCH ×2 (12:24→22:15)
[2022-06-03 20:00] VITALS: BP_SYST 95
[2022-06-03 21:00] VITALS: BP_SYST 131
[2022-06-04] MEDS: MORPHINE 2 MG/ML INJ. SYRINGE IVP PRN ×3 (05:15→23:32)
[2022-06-04] MEDS: LEVOTHYROXINE SODIUM 0.15 MG TABLET PO SCH (07:03)
[2022-06-04 08:58] VITALS: BP_SYST 121
[2022-06-04] MEDS: LACTOBACILLUS RHAMNOSUS GG 1 CAP CAPSULE PO SCH ×2 (10:35→21:13)
[2022-06-04] MEDS: LOSARTAN POTASSIUM 50 MG TABLET (COZAAR) PO SCH (10:36)
[2022-06-04] MEDS: CHOLECALCIFEROL (VITAMIN D3) 5,000 UNIT TABLET PO SCH (10:37)
[2022-06-04] MEDS: NACL 0.9% 1,000 ML IV SCH ×3 (11:13→23:28)
[2022-06-04] MEDS: cefTRIAXone 1 GM in D5W 50 ML IV SCH ×2 (11:13→21:14)
[2022-06-04] MEDS: metFORMIN HCL 500 MG TABLET PO SCH (12:07)
[2022-06-04 12:45] VITALS: BP_SYST 125
[2022-06-04 16:03] VITALS: BP_SYST 123
[2022-06-04 20:15] VITALS: BP_SYST 108
[2022-06-05 01:55] VITALS: BP_SYST 132
[2022-06-05] MEDS: MORPHINE 2 MG/ML INJ. SYRINGE IVP PRN ×4 (05:57→20:29)
[2022-06-05] MEDS: LEVOTHYROXINE SODIUM 0.15 MG TABLET PO SCH (05:58)
[2022-06-05 07:00] LABS: BASOPHILS # (AUTO) 0.1 K/uL (0.0-0.2); BASOPHILS % (AUTO) 0.6 % (0.0-2.0); EOSINOPHILS # (AUTO) 0.3 K/uL (0.0-0.4); EOSINOPHILS % (AUTO) 2.9 % (0.0-4.0); HEMATOCRIT 35.1 % (36-48); HEMOGLOBIN 11.8 g/dL (12.0-16.0); LYMPHOCYTES # (AUTO) 2.9 K/uL (1.0-5.5); LYMPHOCYTES % (AUTO) 28.8 % (20.5-51.5); MEAN CORPUSCULAR HEMOGLOBIN 29 pg (27-31); MEAN CORPUSCULAR HGB CONC 34 % (32-36); MEAN CORPUSCULAR VOLUME 86 fL (79.0-98.0); MONOCYTES # (AUTO) 0.4 K/uL (0.0-1.0); MONOCYTES % (AUTO) 4.4 % (1.7-9.3); NEUTROPHILS # (AUTO) 6.4 K/uL (1.8-7.7); NEUTROPHILS % (AUTO) 63.3 % (40.0-70.0); PLATELET COUNT (AUTO) 359 K/uL (130-430); RED BLOOD CELL COUNT(AUTO) 4.07 MIL/uL (4.2-6.2); RED CELL DISTRIBUTION WIDTH 14.6 % (9.0-15.0); WHITE BLOOD COUNT (AUTO) 10.1 K/uL (4.8-10.8)
[2022-06-05 08:34] LABS: CALCIUM 8.6 mg/dL (8.4-11.0); CREATININE 0.58 mg/dL (0.55-1.30)
[2022-06-05 09:40] VITALS: BP_SYST 156
[2022-06-05] MEDS: cefTRIAXone 1 GM in D5W 50 ML IV SCH ×2 (10:51→20:15)
[2022-06-05] MEDS: LACTOBACILLUS RHAMNOSUS GG 1 CAP CAPSULE PO SCH ×2 (10:53→20:14)
[2022-06-05] MEDS: CHOLECALCIFEROL (VITAMIN D3) 5,000 UNIT TABLET PO SCH (10:53)
[2022-06-05] MEDS: LOSARTAN POTASSIUM 50 MG TABLET (COZAAR) PO SCH (10:53)
[2022-06-05] MEDS: metFORMIN HCL 500 MG TABLET PO SCH (11:19)
[2022-06-05 12:49] VITALS: BP_SYST 115
[2022-06-05] MEDS: NACL 0.9% 1,000 ML IV SCH ×2 (14:15→16:00)
[2022-06-05 16:43] VITALS: BP_SYST 142
[2022-06-05] MEDS ORDERED: CEPH250C PO ×2 (18:03→18:58)
[2022-06-05] MEDS ORDERED: LACT1TAB14 PO (18:04)
[2022-06-05] MEDS: INSULIN REGULAR, HUMAN 100 UNITS/ML, 3 ML VIAL (humuLIN R) SUBCUT PRN (20:26)
[2022-06-06] MEDS: MORPHINE 2 MG/ML INJ. SYRINGE IVP PRN ×2 (00:34→07:41)
[2022-06-06 02:08] VITALS: BP_SYST 117
[2022-06-06] MEDS: LEVOTHYROXINE SODIUM 0.15 MG TABLET PO SCH (07:02)
[2022-06-06 07:13] VITALS: BP_SYST 138
[2022-06-06 09:28] VITALS: BP_SYST 146
[2022-06-06] MEDS: LACTOBACILLUS RHAMNOSUS GG 1 CAP CAPSULE PO SCH (09:32)
[2022-06-06] MEDS: LOSARTAN POTASSIUM 50 MG TABLET (COZAAR) PO SCH (09:32)
[2022-06-06] MEDS: CHOLECALCIFEROL (VITAMIN D3) 5,000 UNIT TABLET PO SCH (09:32)
[2022-06-06 09:39] VITALS: BP_SYST 146
== END 2022-06-06 10:45 | disposition home or self-care (01) | DRG 463 ==
LOC: SED 01:29 → SMU 05:29
PROVIDERS: ADMIT Internal Medicine; ATTEND Internal Medicine
DX: N10 Acute pyelonephritis (principal); R65.10 Systemic inflammatory response syndrome (SIRS) of non-infectious origin without acute organ dysfunction; E44.1 Mild protein-calorie malnutrition; R16.0 Hepatomegaly, not elsewhere classified; B96.20 Unspecified Escherichia coli [E. coli] as the cause of diseases classified elsewhere; E11.9 Type 2 diabetes mellitus without complications; I10 Essential (primary) hypertension; K57.90 Diverticulosis of intestine, part unspecified, without perforation or abscess without bleeding; N20.0 Calculus of kidney; Z20.822 Contact with and (suspected) exposure to COVID-19; Z68.41 Body mass index [BMI] 40.0-44.9, adult; Z88.8 Allergy status to other drugs, medicaments and biological substances; Z90.49 Acquired absence of other specified parts of digestive tract
CPT/HCPCS: 36415; 76376; 80048; 80053; 81000; 82962; 83036; 83690; 85025; 87086; 96365; 96367; 96375; 96376; 99291; J0696; J1815; J1956; J2270; J7030; J7060